=== PATIENT | male | born 1985 | race Caucasian/White ===

== ENCOUNTER 2017-12-10 12:18 | Emergency (ER) | payer OTHER ==
[2017-12-10] MEDS: ASPIRIN 81 MG CHEW TAB ONE (12:52)
[2017-12-10] MEDS: ASPIRIN 81 MG CHEW TAB PO ONE (12:52)
--- NOTE | 2017-12-10 12:58 | ED Physician Documentation ---
Pediatric Injury - HISTORIAN Historian: patient - HPI Stated Complaint: Chest pain/SOA Chief Complaint: Pediatric Injury - PAST HX Allergies/Adverse Reactions: Allergies Allergy/AdvReac Type Severity Reaction Status Date / Time No Known Allergies Allergy Verified 12/10/17 12:50 Home Medications: Ambulatory Orders Medication Instructions Recorded NK [NK] 12/10/17 - VITAL SIGNS Vital Signs: Vital Signs Temp Pulse Resp BP Pulse Ox 98.6 F 61 17 137/83 98 12/10/17 12:18 12/10/17 12:47 12/10/17 12:18 12/10/17 12:18 12/10/17 12:47 ED Results Lab/Radiology - Orders Orders: ED Orders Category Date Time Status Continuous EKG monitoring Q30M Care 12/10/17 12:47 Active Continuous Pulse Oximetry Q30M Care 12/10/17 12:[address] IV Lock 1T Care 12/10/17 12:47 Active CBC/PLATELET/DIFF Stat Lab 12/10/17 12:46 Received CMP Stat Lab 12/10/17 12:46 Received TROPONIN I (cTnI) Stat Lab 12/10/17 12:47 Received Aspirin Med 12/10/17 12:47 Discontinued 324 mg .ROUTE .STK-MED ONE Aspirin Med 12/10/17 12:47 Discontinued 324 mg PO NOW ONE Oxygen Daily Oxygen 12/10/17 13:00 Ordered EKG WITH COMPARISON Stat Ther 12/10/17 12:47 Ordered Discharge Clincal Impression: Buckle fracture of distal end of right radius Additional Instructions: Rest Ice Elevation Call orthopedics for a follow up in the next 2-3 days. Take your disc and report to the appointment. Do not get your OCL splint wet. Place your arm in a trash bag to shower. Return to the ER right away if: The fingers are pale or blue The splint is loose, damaged, gets wet or smells bad Condition: Stable Disposition: 01 HOME, SELF-CARE Decision to Admit: NO Decision Time: 13:00
[2017-12-10 12:59] LABS: BASOPHILS % 0.8 (0.0-1.5); EOSINOPHILS % 3.2 % (0.0-6.8); MEAN CORPUSCULAR HEMOGLOBIN 30.4 pg (28.0-34.0); MEAN CORPUSCULAR VOLUME 89.6 fl (80.0-100.0); MONOCYTES % 5.8 % (0.0-11.0); NEUTROPHILS # 4.6 # k/uL (1.4-7.7)
[2017-12-10 13:14] LABS: eGFR (African) > 60; eGFR (Non-African) > 60
--- NOTE | 2017-12-10 13:32 | ED Physician Documentation ---
Chest Pain - HISTORIAN Historian: patient - HPI Stated Complaint: Chest pain/SOA Chief Complaint: General Adult Onset: days ago Last known Well Date: 12/09/17 Last Known Well Time: 23:00 Context: rest Severity: moderate Quality: sharp Chest Pain Radiation: no radiation Chest Pain Signs/Symptoms: denies: nausea, vomiting, dyspnea, tachycardia Worsened By: nothing Relieved By: nothing Further Comments: yes (32 year old male patient presents with complaint of chest pain since 0100 this morning. Denies radiation, nausea, or shortness of breath. Patient reports doing "a lot of heavy lifting" yesterday. Patient reports brother had 3 ND's in his 30's, paternal father and maternal grandfather with ND history. Reports frequent episodes of gastric reflux, quit drinking Mt Dew days ago, r/t heart burn.) - ROS CONST: none MS/LYMPH: none GI/: none EYES/ENT: none SKIN/ENDO: none NEURO/PSYCH: none - PAST HX ND risk factors: other (family history) DVT/PE Risk Factors: none TAD/AAA risk factors: none Neuro deficit: none GI disease: GERD Allergies/Adverse Reactions: Allergies Allergy/AdvReac Type Severity Reaction Status Date / Time No Known Allergies Allergy Verified 12/10/17 12:50 Home Medications: Ambulatory Orders Medication Instructions Recorded Ranitidine HCl 150 mg PO HS #30 tablet 12/10/17 - SOCIAL HX Smoking History: cigarettes Drug Use: methamphetamines (clean for 8 years; 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 Reviewed lab and EKG results. Recommended follow up with PCP for wellness exam and FLP. Patient reports using TUMs frequently for heart burn. Patient is pain free at discharge. Reviewed signs and symptoms to return to ER. Verbalized understanding. - EKG/XRAY/CT EKG: rhythm (SR, rate 64, no acute changes. ) ED Results Lab/Radiology - Lab Results Lab Results: Lab Results 12/10/17 12/10/17 12/10/17 12:47 12:46 12:46 WBC 7.60 K/ul K/ul (4.00-12.00) RBC 5.04 M/ul M/ul (3.90-5.20) Hgb 15.3 g/dL g/dL (12.0-18.0) Hct 45.2 % % (37.0-53.0) MCV 89.6 fl fl (80.0-100.0) MCH 30.4 pg pg (28.0-34.0) MCHC 33.9 g/dL g/dL (30.0-36.0) RDW 12.9 % % (11.3-14.3) Plt Count 215 K/mm3 K/mm3 (130-400) Neut % (Auto) 60.2 % % (39.0-79.0) Lymph % (Auto) 28.8 % % (16.0-50.0) Winston % (Auto) 5.8 % % (0.0-11.0) Eos % (Auto) 3.2 % % (0.0-6.8) Baso % (Auto) 0.8 (0.0-1.5) Neut # (Auto) 4.6 # k/uL # k/uL (1.4-7.7) Lymph # (Auto) 2.2 # k/uL # k/uL (0.6-4.0) Winston # (Auto) 0.4 # k/uL # k/uL (0.0-0.9) Eos # (Auto) 0.2 # k/uL # k/uL (0.0-0.6) Baso # (Auto) 0.1 # k/uL # k/uL (0.0-0.5) Reactive Lymphs % 1.2 % % (0.0-5.0) Reactive Lymphs # 0.1 # k/uL # k/uL (0.0-0.8) Sodium 142 mmol/L mmol/L (136-145) Potassium 4.1 mmol/L mmol/L (3.5-5.1) Chloride 103 mmol/L mmol/L (98-107) Carbon Dioxide 26 mmol/L mmol/L (22-30) BUN 15 mg/dL mg/dL (9-20) Creatinine 0.90 mg/dL mg/dL (0.66-1.25) Estimated Creat Clear 140 Est GFR ( Amer) > 60 (60 - ) Est GFR (Non-Af Amer) > 60 (60 - ) Glucose 91 mg/dL mg/dL (74-106) Calcium 9.3 mg/dL mg/dL (8.4-10.2) Total Bilirubin 0.7 mg/dL mg/dL (0.2-1.3) AST 20 U/L U/L (15-46) ALT 36 U/L U/L (13-69) Alkaline Phosphatase 71 U/L U/L (38-126) Troponin I < 0.03 ng/mL L ng/mL (0.03-0.06) Total Protein 6.8 g/dL g/dL (6.3-8.2) Albumin 4.2 g/dL g/dL (3.5-5.0) - Orders Orders: ED Orders Category Date Time Status Continuous EKG monitoring Q30M Care 12/10/17 12:47 Active Continuous Pulse Oximetry Q30M Care 12/10/17 12:[address] IV Lock 1T Care 12/10/17 12:47 Active CBC/PLATELET/DIFF Stat Lab 12/10/17 12:46 Completed CMP Stat Lab 12/10/17 12:46 Completed TROPONIN I (cTnI) Stat Lab 12/10/17 12:47 Completed Aspirin Med 12/10/17 12:47 Discontinued 324 mg .ROUTE .STK-MED ONE Aspirin Med 12/10/17 12:47 Discontinued 324 mg PO NOW ONE Oxygen Daily Oxygen 12/10/17 13:00 Ordered EKG WITH COMPARISON Stat Ther 12/10/17 12:47 Ordered Chest Pain Physical Exam - EXAM General Appearance: mild distress EENT: eye inspection normal, ENT inspection normal, pharynx normal, no signs of dehydration, JENNIFER, no nystagmus, TM's nml Respiratory: no resp. distress, chest non-tender, nml breath sounds CVS: reg. rate & rhythm, no murmur, no gallop, no friction rub, pulses full, pulses equal Abdomen: soft, no organomegaly, normal bowel sounds, no abdominal bruit, no distension Skin: normal color, warm/dry, NR, INT, DR Extremities: non-tender, normal range of motion, no evidence of injury, no edema , J, [employer] Neuro: oriented X3, CN's nml as tested, motor nml, sensation nml, mood/affect nml Discharge Clincal Impression: Non-cardiac chest pain GERD (gastroesophageal reflux disease) Qualifiers: Esophagitis presence: without esophagitis Qualified Code(s): K21.9 - Gastro- esophageal reflux disease without esophagitis Clincal Impression: (Ruled Out): Buckle fracture of distal end of right radius Prescriptions: Ranitidine HCl 150 mg PO HS #30 tablet Referrals: Stephanie Milan FNP [Primary Care Provider] - 2 Days Additional Instructions: Make a follow up appointment with your primary care provider for a wellness visit. Have your lipid profile checked. Discuss starting an 81mg baby aspirin daily. counselor supervisor your prescription and start it tonight. Ranitidine Return to Er if you have CP with shortness of breath, sweating all over, radiation to left arm, and nausea. Condition: Stable Disposition: 01 HOME, SELF-CARE Decision to Admit: NO Decision Time: 13:36
[2017-12-10 13:51] VITALS: BP 120/63
== END 2017-12-10 13:38 | disposition home or self-care (01) ==
LOC: ED 12:18
DX: R07.89 Other chest pain (principal); K21.9 Gastro-esophageal reflux disease without esophagitis
CPT/HCPCS: 80053; 84484; 85025; 99282; 99283; S1016